=== PATIENT | male | born 1955 | race Caucasian/White ===

== ENCOUNTER 2025-01-20 11:00 | Inpatient (IN) | payer MEDICARE, MEDICAID ==
[~2025-01-20] VITALS: Ht 167.6 cm; Wt 77.6 kg
[2025-01-20 11:50] VITALS: BP 142/77; TEMP 99.1; O2SAT 96
[2025-01-20] MEDS ORDERED: HEPARIN SODIUM IV (12:12)
[2025-01-20 12:40] VITALS: BP 142/77; TEMP 99.1; O2SAT 96
[2025-01-20] MEDS ORDERED: CEFEPIME 1 GM in IV D5W 50 ML IV SCH (13:30)
[2025-01-20 14:20] LABS: PLATELET COUNT (AUTO) 97 K/uL (150-450); RED BLOOD CELL COUNT(AUTO) 4.56 MIL/uL (4.5-6.0); RED CELL DISTRIBUTION WIDTH 14.8 % (11.5-15.0); WHITE BLOOD COUNT (AUTO) 19.0 K/uL (4.3-11.0)
[2025-01-20 14:25] LABS: CALCIUM, SERUM 8.0 mg/dL (8.5-10.1); CREATININE 1.4 mg/dL (0.6-1.3); SODIUM SERUM 140.0 mmol/L (136-145); UREA NITROGEN, BLOOD 21.0 mg/dL (7-18)
[2025-01-20] MEDS ORDERED: ONDANSETRON HCL/PF 4 MG/2 ML VIAL IVP PRN (14:30)
[2025-01-20] MEDS ORDERED: Z GUARD REMEDY 4 OZ OINT TP PRN (14:30)
[2025-01-20] MEDS ORDERED: MAG HYDROX/AL HYDROX/SIMETH 30 ML UDC PO PRN (14:30)
[2025-01-20] MEDS ORDERED: ACETAMINOPHEN 325 MG TABLET PO PRN (14:30)
[2025-01-20] MEDS ORDERED: MAGNESIUM HYDROXIDE 30 ML UDC PO PRN (14:30)
[2025-01-20] MEDS: IV NS 0.9% 1,000 ML IV PRN (15:35)
[2025-01-20] MEDS: CEFEPIME 2 GM in IV D5W 100 ML IV SCH (15:35)
[2025-01-20 16:00] VITALS: BP 144/80; TEMP 98.4; O2SAT 95
[2025-01-20 16:38] LABS: LYMPHOCYTES % (MANUAL) 6 % (16-48); MONOCYTES % (MANUAL) 4 % (0-11.0); NEUTROPHILS % (MANUAL) 90 (42-76); PLATELET ESTIMATE DECREASED
[2025-01-20] MEDS: ATORVASTATIN 40 MG TABLET PO SCH (17:15)
[2025-01-20] MEDS: METOPROLOL TARTRATE 50 MG TABLET PO SCH (17:15)
[2025-01-20 17:16] LABS: APPEARANCE,URINE CLEAR (CLEAR); BLOOD, URINE TRACE-INTA Ery/uL (NEGATIVE); LEUKOCYTE ESTERASE ,URINE NEGATIVE (NEGATIVE); NITRITE, URINE NEGATIVE (NEGATIVE); UGLUCOSE NEGATIVE (NEGATIVE)
[2025-01-20 17:42] LABS: ADD URINE CULTURE YES; SQUAMOUS EPITHELIAL CELL,UR Few /HPF (None Seen)
[2025-01-20 22:00] VITALS: BP 133/82; TEMP 98.1; O2SAT 97
[2025-01-21 04:54] VITALS: BP 144/81; TEMP 98.1; O2SAT 97
[2025-01-21 07:11] LABS: PLATELET COUNT (AUTO) 93 K/uL (150-450); RED BLOOD CELL COUNT(AUTO) 4.30 MIL/uL (4.5-6.0); RED CELL DISTRIBUTION WIDTH 14.7 % (11.5-15.0); WHITE BLOOD COUNT (AUTO) 13.7 K/uL (4.3-11.0)
[2025-01-21 07:21] LABS: ASPARTATE AMINOTRANSFERASE 65.0 U/L (15-37); CALCIUM, SERUM 7.9 mg/dL (8.5-10.1); CREATININE 1.1 mg/dL (0.6-1.3); PHOSPHORUS 2.0 mg/dL (2.5-4.9); SODIUM SERUM 142.0 mmol/L (136-145); TOTAL PROTEIN, SERUM 6.0 g/dL (6.4-8.2); UREA NITROGEN, BLOOD 15.0 mg/dL (7-18)
[2025-01-21 07:30] VITALS: BP 160/82; TEMP 97.9; O2SAT 96
[2025-01-21] MEDS: IV NS 0.9% 1,000 ML IV PRN (08:20)
[2025-01-21] MEDS: POTASSIUM CHLORIDE 20 MEQ TAB.PRT.SR PO SCH (08:21)
[2025-01-21] MEDS: ASPIRIN 81 MG TAB.CHEW PO SCH (08:21)
[2025-01-21] MEDS: Magnesium 1GM/D5W 100ML PREMIX 100 ML IV SCH (08:21)
[2025-01-21 08:44] LABS: LDL 83.0 mg/dL (0-99)
[2025-01-21] MEDS: CEFEPIME 2 GM in IV D5W 100 ML IV SCH (10:34)
[2025-01-21 13:49] LABS: BAND % (MANUAL) 4 % (0.0-5.0); LYMPHOCYTES % (MANUAL) 3 % (16-48); MYELOCYTES % 2 % (0-0); NEUTROPHILS % (MANUAL) 91 (42-76); PLATELET ESTIMATE DECREASED
[2025-01-21 16:00] VITALS: BP 152/86; TEMP 98.1; O2SAT 92
[2025-01-21] MEDS: K PHOS NEUTRAL 250 MG TABLET PO ONE (17:03)
[2025-01-21 19:48] LABS: CALCIUM, SERUM 8.4 mg/dL (8.5-10.1); CREATININE 1.1 mg/dL (0.6-1.3); SODIUM SERUM 142.0 mmol/L (136-145); UREA NITROGEN, BLOOD 13.0 mg/dL (7-18)
[2025-01-21 20:00] VITALS: BP 160/86; TEMP 97.7; O2SAT 98
[2025-01-21] MEDS: TAMSULOSIN 0.4 MG CAP.SR.24H PO SCH (21:57)
[2025-01-21] MEDS ORDERED: CEFEPIME 1 GM VIAL ONE ×2 (22:27→22:47)
[2025-01-22] VITALS: BP 164/81; TEMP 97.9; O2SAT 98
[2025-01-22 04:00] VITALS: BP 170/85; TEMP 97.7; O2SAT 97
[2025-01-22 08:00] VITALS: BP 169/94; TEMP 97.5; O2SAT 94
[2025-01-22 08:50] LABS: PLATELET COUNT (AUTO) 97 K/uL (150-450); RED BLOOD CELL COUNT(AUTO) 4.33 MIL/uL (4.5-6.0); RED CELL DISTRIBUTION WIDTH 14.2 % (11.5-15.0); WHITE BLOOD COUNT (AUTO) 10.5 K/uL (4.3-11.0)
[2025-01-22 09:30] LABS: ASPARTATE AMINOTRANSFERASE 45.0 U/L (15-37); CALCIUM, SERUM 8.3 mg/dL (8.5-10.1); CREATININE 1.0 mg/dL (0.6-1.3); PHOSPHORUS 2.3 mg/dL (2.5-4.9); SODIUM SERUM 141.0 mmol/L (136-145); TOTAL PROTEIN, SERUM 6.2 g/dL (6.4-8.2); UREA NITROGEN, BLOOD 13.0 mg/dL (7-18)
[2025-01-22] MEDS: FINASTERIDE (5 MG) 5 MG TABLET PO SCH (10:00)
[2025-01-22 10:05] LABS: FREE PSA 0.24 ng/mL (0.00-45); PROSTATE SPECIFIC ANTIGEN SCR 4.79 ng/mL (0.00-4.00)
[2025-01-22] MEDS: VALSARTAN 80 MG TABLET PO SCH (10:17)
[2025-01-22 11:33] VITALS: BP 189/91; TEMP 97.7; O2SAT 97
[2025-01-22 14:24] LABS: LYMPHOCYTES % (MANUAL) 10 % (16-48); MONOCYTES % (MANUAL) 7 % (0-11.0); NEUTROPHILS % (MANUAL) 83 (42-76); PLATELET ESTIMATE DECREASED
[2025-01-22] MEDS ORDERED: IOHEXOL-350 100 ML VIAL IV ONE (15:19)
[2025-01-22] MEDS ORDERED: IV NS 0.9% 250 ML IV ONE (15:19)
[2025-01-22 15:32] LABS: CALCIUM, SERUM 8.6 mg/dL (8.5-10.1); CREATININE 1.0 mg/dL (0.6-1.3); SODIUM SERUM 140.0 mmol/L (136-145); UREA NITROGEN, BLOOD 14.0 mg/dL (7-18)
[2025-01-22] MEDS: NITROGLYCERIN 0.4 MG/TAB BOTTLE SL ONE (15:42)
[2025-01-22 16:00] VITALS: BP 158/74; TEMP 97.9; O2SAT 94
[2025-01-22] MEDS ORDERED: POTASSIUM CHLORIDE 20 MEQ POWDER PACKET NG SCH (16:00)
[2025-01-22] MEDS: K PHOS NEUTRAL 250 MG TABLET PO ONE (16:44)
[2025-01-22 21:20] VITALS: BP 158/79; TEMP 98.1; O2SAT 94
[2025-01-23 07:49] LABS: PLATELET COUNT (AUTO) 129 K/uL (150-450); RED BLOOD CELL COUNT(AUTO) 4.58 MIL/uL (4.5-6.0); RED CELL DISTRIBUTION WIDTH 14.1 % (11.5-15.0); WHITE BLOOD COUNT (AUTO) 4.9 K/uL (4.3-11.0)
[2025-01-23 08:00] VITALS: BP 167/86; TEMP 98.6; O2SAT 95
[2025-01-23 08:14] LABS: CALCIUM, SERUM 9.1 mg/dL (8.5-10.1); CREATININE 1.0 mg/dL (0.6-1.3); PHOSPHORUS 4.1 mg/dL (2.5-4.9); SODIUM SERUM 140.0 mmol/L (136-145); UREA NITROGEN, BLOOD 11.0 mg/dL (7-18)
[2025-01-23] MEDS: POTASSIUM CHLORIDE 20 MEQ TAB.PRT.SR PO ONE (09:00)
[2025-01-23] MEDS ORDERED: ASPI-1169 PO (10:26)
[2025-01-23] MEDS ORDERED: VALS160T2 PO (10:26)
[2025-01-23] MEDS ORDERED: METO50TA7 PO (10:26)
[2025-01-23] MEDS ORDERED: FINA5TAB11 PO (10:26)
[2025-01-23] MEDS ORDERED: LEVO500T90 PO (10:26)
[2025-01-23] MEDS ORDERED: TAMS-12 PO (10:26)
[2025-01-23] MEDS ORDERED: ATOR40TA PO (10:26)
[2025-01-23 12:28] VITALS: BP 160/95
[2025-01-23 14:21] LABS: CALCIUM, SERUM 9.2 mg/dL (8.5-10.1); CREATININE 1.0 mg/dL (0.6-1.3); SODIUM SERUM 140.0 mmol/L (136-145); UREA NITROGEN, BLOOD 12.0 mg/dL (7-18)
== END 2025-01-23 15:55 | disposition home health service (06) | DRG 871 ==
LOC: UNDOADMIN 11:00 → TELE 11:00 → MED 01-23 09:28
PROVIDERS: ADMIT Nurse Practitioner Acute Care
DX: A41.9 Sepsis, unspecified organism (principal); I21.A1 Myocardial infarction type 2; N17.0 Acute kidney failure with tubular necrosis; N13.6 Pyonephrosis; N12 Tubulo-interstitial nephritis, not specified as acute or chronic; N41.9 Inflammatory disease of prostate, unspecified; I47.10 Supraventricular tachycardia, unspecified; E87.6 Hypokalemia; I25.10 Atherosclerotic heart disease of native coronary artery without angina pectoris; E83.89 Other disorders of mineral metabolism; N40.1 Benign prostatic hyperplasia with lower urinary tract symptoms
CPT/HCPCS: 36415; 75574; 76770-TC; 80048-TC; 80053-TC; 80061-TC; 81001; 83735-TC; 84100-TC; 84153-TC; 84154-TC; 84439-TC; 84443-TC; 84484-TC; 85025-TC; 85027-TC; 87040-TC; 87086-TC; 93307-TC; A4223; G0378; J0692; J3475; J7030; J7050; J7060; Q9967